=== PATIENT | female | born 1990 | race Caucasian/White ===

== ENCOUNTER 2016-08-20 09:53 | Emergency (ER) ==
[2016-08-20 10:56] LABS: MANUAL DIFF NEEDED? NO
[2016-08-20 10:58] LABS: URINE SOURCE CATH
[2016-08-20 11:02] LABS: BILIRUBIN URINE NEGATIVE (NEGATIVE); BLOOD URINE NEGATIVE (NEGATIVE); COLOR YELLOW; GLUCOSE URINE TRACE mg/dL (NEGATIVE); LEUKOCYTES URINE NEGATIVE (NEGATIVE); NITRITE URINE NEGATIVE (NEGATIVE); PH URINE 6.5; PROTEIN URINE 30 mg/dL (NEGATIVE); TURBIDITY URINE CLEAR (CLEAR); UROBILINOGEN URINE NORMAL (NORMAL)
[2016-08-20 11:03] LABS: BASO% 0.2 % (0.0-0.8); EOS# 0.77 X1000 (0.0-0.7); EOS% 5.6 % (0.0-10.0); HEMATOCRIT 29.3 % (37.0-47.0); IMM GRAN# 0.08 X1000 (0.0-0.04); IMM GRAN% 0.6 % (0.0-0.5); LYMPH# 2.32 X1000 (1.2-3.4); LYMPH% 16.8 % (20.5-51.1); MCH 23.2 PG (27-31); MCHC 30.7 g/dL (33-37); MCV 75.5 FL (81-99); MONO# 0.76 X1000 (0.11-0.59); MONO% 5.5 % (1.7-9.3); MPV 10.7 FL (7.4-10.4); NEUT% 71.3 % (42.2-75.2); PLT 242 X1000 (130-400); RBC 3.88 XMIL (4.2-5.4)
[2016-08-20 11:07] LABS: UR EPITHELIAL CELLS >10 /HPF (<10); URINE BACTERIA NEGATIVE /HPF; URINE MICRO REVIEW NEEDED? YES; URINE RBC <10 /HPF (<10); URINE WBC <10 /HPF (<10)
[2016-08-20 11:14] LABS: URINE CASTS NONE SEEN; URINE CRYSTALS NONE SEEN; URINE SMALL ROUND CELLS NONE SEEN
--- NOTE | 2016-08-20 11:16 | PROVIDER DOCUMENTATION ---
HPI-Abdominal Pain/GI Problem - General Source: patient - History of Present Illness-ABD Nature of Presenting Problems: Pt is a 26 yof who came to the ED with a cc of abdominal pain. Pt reports she is unable to urinate and has periumbilical pain/hernia. Pt has a yeast infection. Abdominal Pain Onset Location: reports: periumbilical Pain Radiation: reports: no radiation Quality of Pain: reports: sharp Onset/Duration: reports: unsure Timing: reports: still present Exposure to sick contacts?: No Modifying Factors: improves with: nothing Associated Symptoms: reports: vomiting Last BM: unsure Bruising or Bleeding Gums?: No Similar Symptoms Previously?: No Recently seen or treated by another doctor?: No <Marilee Gonzales - Last Filed: 08/20/16 13:40> <Adama Orantes I - Last Filed: 08/20/16 13:57> - General Chief Complaint: Abdominal Pain Stated Complaint: POSS HERNIA Time Seen by Provider: 08/20/16 10:33 Allergies/Adverse Reactions: Patient Allergies Allergy/AdvReac Type Severity Reaction Status Date / Time No Known Allergies Allergy Verified 08/20/16 10:20 Home Medications: Home Medication List Medication Instructions Recorded Confirmed Last Taken Type No Home Medications 08/20/16 08/20/16 Unknown History Review of Systems - Adult - REVIEW OF SYSTEMS - ADULT Constitutional: denies: chills, fever Eyes: reports: no symptoms reported Ears, Nose, Mouth & Throat: reports: no symptoms reported Cardiovascular: reports: no symptoms reported Respiratory: reports: no symptoms reported Gastrointestinal: reports: abdominal pain (periumbilical), nausea, vomiting. denies: diarrhea, frequent heartburn, rectal bleeding Genitourinary: reports: urinary retention. denies: dysuria, hematuria Musculoskeletal: reports: no symptoms reported Integumentary: reports: no symptoms reported Neurological: reports: no symptoms reported Psychiatric: reports: no symptoms reported Endocrine: reports: no symptoms reported Hematologic/Lymphatic: reports: no symptoms reported Allergic/Immunologic: reports: no symptoms reported All Other Systems: Reviewed and Negative <Marilee Gonzales - Last Filed: 08/20/16 13:40> Past History - Adult - PAST MEDICAL HISTORY-ADULT Review of Records: reports: Old Records Reviewed, Nursing Assessment Review Major Childhood Illnesses: reports: denies history Cardiovascular: reports: denies history Respiratory: reports: asthma Gastrointestinal: reports: denies history Obstetrical/Gynecological: reports: denies history Genitourinary: reports: denies history Musculoskeletal: reports: denies history Neurological: reports: denies history Endocrine/Immune: reports: denies history Other Conditions: reports: denies history - PRIOR SURGERIES/PROCEDURES Surgical/Procedure History: reports: none - FAMILY HISTORY Family History: reviewed, not pertinent <Marilee Gonzales - Last Filed: 08/20/16 13:40> Physical Exam-General - PHYSICAL EXAM-ADULT Initial Vital Signs Reviewed: Yes - CONSTITUTIONAL General Appearance: alert, mild distress - EYES Eyes: PERRL/EOMI, pink conjunctivae, fundi clear, no AV nicking - HEAD, EARS, NOSE, MOUTH & THROAT HENMT: normocephalic/atraumatic, moist mucous membranes, normal ENT inspection, TMs normal, pharynx normal - NECK Neck: non-tender - RESPIRATORY Respiratory: chest non-tender, lungs clear, normal breath sounds, no pleuratic chest pain, no respiratory distress, no accessory muscle use - CARDIOVASCULAR Cardiovascular: normal peripheral pulses, regular rate, rhythm, no edema, no gallop, no JVD, no murmur - GASTROINTESTINAL (ABDOMEN) Abdominal Exam: tenderness (periumbilical pain), hernia - SKIN Integumentary: normal color, normal turgor - NEUROLOGIC Neurologic: grossly normal - PSYCHIATRIC Psych/Mental Status: normal mood/affect, normal thought content, normal thought process, oriented x 3 <Marilee Gonazles - Last Filed: 08/20/16 13:40> Progress - PLAN OF CARE/RESULTS Progress/Plan/Lab Results: Vital Signs - 24 hr 08/20/16 09:55 Temperature 97.7 F Pulse Rate 114 H Respiratory 20 Rate Blood Pressure 122/94 O2 Sat by Pulse 100 Oximetry Orders Category Date Time Status ED: Urine Bedside ORDERED Care 08/20/16 10:24 Active US OBS COMPLETE > 14 WKS [US] Stat Exams 08/20/16 10:57 Ordered CBC WITH DIFF [HEME] Stat Lab 08/20/16 10:35 Completed CMP [COMPREHENSIVE METABOLIC PANEL] [CHEM] Stat Lab 08/20/16 10:35 Received TEST-SERUM [PREG] Stat Lab 08/20/16 10:35 Received QUANT TEST Stat Lab 08/20/16 10:35 Received URINALYSIS [URINALYSIS] Stat Lab 08/20/16 10:50 Results URINE MANUAL MICROSCOPIC [URINALYSIS] Stat Lab 08/20/16 10:50 Results Laboratory Tests 08/20/16 08/20/16 10:35 10:50 WBC 13.82 H RBC 3.88 L Hgb 9.0 L Hct 29.3 L MCV 75.5 L MCH 23.2 L MCHC 30.7 L RDW Std Deviation 16.5 H Plt Count 242 MPV 10.7 H Immature Gran % (Auto) 0.6 H Neut % (Auto) 71.3 Lymph % (Auto) 16.8 L [place] % (Auto) 5.5 Eos % (Auto) 5.6 Baso % (Auto) 0.2 Immature Gran # (Auto) 0.08 H Neut # (Auto) 9.86 H Lymph # (Auto) 2.32 [place] # (Auto) 0.76 H Eos # (Auto) 0.77 H Baso # (Auto) 0.03 Urine Source CATH Urine Color YELLOW Urine Turbidity CLEAR Urine pH 6.5 Ur Specific [place] 1.020 Urine Protein 30 A Ur Glucose (Stick) TRACE Ur Ketones (Stick) 10 A Urine Blood NEGATIVE Urine Nitrite NEGATIVE Urine Bilirubin NEGATIVE Urobilinogen Dipstick NORMAL Urine Leukocytes NEGATIVE Urine WBC (Auto) <10 Urine RBC (Auto) <10 U Epithel Cells (Auto) >10 A Urine Bacteria (Auto) NEGATIVE - ULTRASOUND (By Radiology) 1 US Study: Abdomen (herniated frat, viable fetus heart rate of 136) <Marilee Gonzales - Last Filed: 08/20/16 13:40> - PLAN OF CARE/RESULTS Progress/Plan/Lab Results: A0 who didn't know she was . She is 28 weeks IUP per U/S. She has a viable fetus at 136 HR. I spoke to Dr. Hoffmann, who recommended transfer to [facility] for Obstetrical evaluation. Marquis Orantes M.D., ACEP 1400 <Adama Orantes I - Last Filed: 08/20/16 13:57> Departure - Departure Time of Disposition Order: 13:40 Certified Medical Emergency: Emergent <Marilee Gonzales - Last Filed: 08/20/16 13:40> - Departure Time of Disposition Order: 13:56 Certified Medical Emergency: Emergent <Adama Orantes I - Last Filed: 08/20/16 13:57> - Departure DIAGNOSIS: Abdominal pain during intrauterine , Intrauterine , Periumbilical hernia Disposition: [facility] Condition: Stable Referrals: None,PCP [Primary Care Provider] - Attestation - Scribe Verification/Attestation Scribe:: Marilee Gonzales Acting as Scribe for:: Adama Orantes Scribe documention review:: This chart was documented by a scribe and accurately reflects the service the provider performed and the decisions made by the provider. <Marilee Gonzales - Last Filed: 08/20/16 13:40> Physician Attestation - Physician Attestation I, the provider, attest to the following statement:: Adama Orantes Physician documentation Attestation:: This documentation recorded by the scribe accurately reflects the service I personally performed and the decisions made by me. <Adama Orantes I - Last Filed: 08/20/16 13:57>
[2016-08-20 11:44] LABS: AGAP 16; ALBUMIN 3.4 g/dL (3.5-5.0); ALKALINE PHOSPHATASE 71 U/L (32-104); BUN 4 mg/dL (8-22); CALCIUM 8.5 mg/dL (8.8-10.2); CHLORIDE 101 mmol/L (98-107); COSMO 265; GOT 28 U/L (10-30); GPT 12 U/L (10-36); POTASSIUM 4.2 mmol/L (3.5-5.1); SODIUM 134 mmol/L (136-145); TCO2 17 mmol/L (25-35); TOTAL BILIRUBIN 0.21 mg/dL (0.20-1.00); TOTAL PROTEIN 7.3 g/dL (6.3-8.3)
[2016-08-20 14:32] VITALS: BP 128/64
--- NOTE | 2016-08-20 17:12 | Diag Imaging Result Document ---
PROCEDURE NAME: US OBS COMPLETE > 14 WKS - 08/20/2016 OB ULTRASOUND: FINDINGS: There are no previous studies of any kind. There is an apparent umbilical hernia. This contains what appears to be fat from the peritoneum. There is also a small amount of fluid present within the sac of the hernia. The fluid collection is less than 1.6 cm in various dimension. There is a viable intrauterine gestation. The placenta is anterior and there is no evidence of placenta previa. There are no apparent anatomic abnormalities. Amniotic fluid volume is qualitatively normal. The fetus based on multiple parameters is consistent with a gestational age of 28 week, 5 days +/- 13 days. The estimated weight is 1313 grams +/- 176 grams. The PHILIPP is estimated at 11/07/2016. IMPRESSION: Viable intrauterine gestation at 28 weeks, 5 weeks by ultrasound. Apparent umbilical hernia containing fat and fluid.
== END 2016-08-20 14:25 | disposition admitted as inpatient to this hospital (09) ==
LOC: ED 09:53
DX: O26.893 Other specified pregnancy related conditions, third trimester (principal); K42.9 Umbilical hernia without obstruction or gangrene; R10.33 Periumbilical pain; R11.0 Nausea; R33.9 Retention of urine, unspecified; R10.815 Periumbilic abdominal tenderness; O21.9 Vomiting of pregnancy, unspecified; Z3A.28 28 weeks gestation of pregnancy
CPT/HCPCS: 76805; 80053; 81001; 84702; 84703; 85025

== ENCOUNTER 2016-10-25 22:06 | Inpatient (IN) ==
[2016-10-25 22:36] LABS: URINE SOURCE VOIDED
[2016-10-25 22:52] LABS: BILIRUBIN URINE NEGATIVE (NEGATIVE); BLOOD URINE NEGATIVE (NEGATIVE); CLARITY SL. CLOUDY (CLEAR); COLOR YELLOW; GLUCOSE URINE NEGATIVE (NEGATIVE); LEUKOCYTES URINE 2+ (NEGATIVE); NITRITE URINE NEGATIVE (NEGATIVE); PH URINE 6.5; PROTEIN URINE TRACE mg/dL (NEGATIVE); UROBILINOGEN URINE 4+(12 mg/dL)
[2016-10-25] MEDS ORDERED: PEPCID IV PRN (23:13)
[2016-10-25] MEDS ORDERED: PEPCID PO PRN (23:13)
[2016-10-25] MEDS ORDERED: ZOFRAN IV PRN (23:13)
[2016-10-25] MEDS ORDERED: REGLAN PO ONE (23:13)
[2016-10-25] MEDS ORDERED: TYLENOL PO PRN (23:13)
[2016-10-25] MEDS ORDERED: PEPCID PO ONE (23:13)
[2016-10-25] MEDS ORDERED: PITOCIN 30 UNITS/LR 30 UNITS/500 ML IV.SOLN IV SCH (23:13)
[2016-10-25] MEDS ORDERED: KEFZOL 1 GM/D5W 1 GM/50 ML IVPB IV PRN (23:13)
[2016-10-25] MEDS ORDERED: SODIUM CHLORIDE 0.9% INJ SCH (23:15)
[2016-10-25] MEDS ORDERED: PHENERGAN IV PRN (23:16)
[2016-10-25] MEDS ORDERED: SODIUM CHLORIDE 0.9% INJ PRN (23:16)
[2016-10-26] MEDS: LR 1,000 ML IV SCH ×2 (00:25→05:05)
[2016-10-26] MEDS: STADOL IV PRN ×2 (01:14→04:48)
[2016-10-26 01:30] LABS: UR AMPHETAMINES QUAL NONE DETECTED (NONE DETECT); UR BARBITUATES QUAL NONE DETECTED (NONE DETECT); UR BENZODIAZEPIN QUAL NONE DETECTED (NONE DETECT); UR CANNABINOIDS QUAL NONE DETECTED (NONE DETECT); UR COCAINE QUAL NONE DETECTED (NONE DETECT); UR MDMA QUAL NONE DETECTED (NONE DETECT); UR METHADONE QUAL NONE DETECTED (NONE DETECT); UR METHAMPHETAMINE QUAL NONE DETECTED (NONE DETECT); UR OPIATES QUAL NONE DETECTED (NONE DETECT); UR OXYCODONE QUAL NONE DETECTED (NONE DETECT); UR PCP QUAL NONE DETECTED (NONE DETECT); UR TCA QUAL NONE DETECTED (NONE DETECT)
[2016-10-26 01:41] LABS: BASO% 0.2 % (0.0-0.8); EOS% 4.1 % (0.0-10.0); HEMATOCRIT 22.7 % (37.0-47.0); HEMOGLOBIN 6.6 g/dL (12.0-16.0); IMM GRAN# 0.06 X1000 (0.0-0.04); IMM GRAN% 0.5 % (0.0-0.5); LYMPH# 2.86 X1000 (1.2-3.4); LYMPH% 23.7 % (20.5-51.1); MANUAL DIFF NEEDED? YES; MCH 19.6 PG (27-31); MCHC 29.1 g/dL (33-37); MCV 67.4 FL (81-99); MONO# 0.75 X1000 (0.11-0.59); MONO% 6.2 % (1.7-9.3); MPV 10.4 FL (7.4-10.4); NEUT% 65.3 % (42.2-75.2); PLT 197 X1000 (130-400); RBC 3.37 XMIL (4.2-5.4)
[2016-10-26 02:57] LABS: BANDS 0 % (0-1); BASO 0 % (0-1); EOS 6 % (1-10); HYPOCHROM 1+; LYMPHS 22 % (21-51); MONO 6 % (1-9); POLYCHROM OCCASIONAL
[2016-10-26 02:58] LABS: TARGET CELLS OCCASIONAL
[2016-10-26] MEDS ORDERED: MARCAINE 0.25% PF/EPI 1:200,000 ONE (05:31)
[2016-10-26] MEDS ORDERED: FENTANYL-BUPIV-NS 2 MCG-0.1% 200 ML ONE (05:31)
[2016-10-26] MEDS ORDERED: FENTANYL-BUPIV-NS 2 MCG-0.1% 200 ML EPIDURAL SCH (06:00)
--- NOTE | 2016-10-26 07:40 | OPERATIVE NOTE ---
PROCEDURE DATE: 10/26/2016 DELIVERING PHYSICIAN: Dr. Zion Hoffmann. TYPE OF DELIVERY: Spontaneous controlled vaginal delivery. ANESTHESIA: Epidural. FINDINGS: At 7:07, a 6 pound 11 ounce female infant was delivered in occiput anterior presentation. There was a nuchal cord x2. Apgars were 8 at 1 minute and 10 at 5 minutes. SUMMARY: Cheli Flores is a 26-year-old 4, para 3, who is at term gestation. Her blood type is A positive. Rubella immune. Hepatitis B surface antigen, HIV, and group B strep is negative. The patient's care has been uncomplicated. She presented to Labor and Delivery in spontaneous labor. She had spontaneous rupture of membranes. After an epidural was placed, she became complete and began pushing. She rapidly crowned. At that point, a spontaneous controlled vaginal delivery occurred. The oropharynx was bulb suctioned. The nuchal cord x2 was reduced. The shoulders and body delivered without complications. Cord was clamped and cut. The infant was handed to the nurses for further care and evaluation. Cord blood was obtained. Placenta was spontaneously delivered. It was intact. There were no cervical or vaginal lacerations and blood loss estimated at 150 mL. The patient remained in the LDR recovering without difficulty. cc: MD Raymond Drummond MD
[2016-10-26] MEDS ORDERED: PERCOCET-5 PO PRN (08:18)
[2016-10-26] MEDS ORDERED: XYLOCAINE-MPF 1% INJ PRN (08:18)
[2016-10-26] MEDS ORDERED: MINERAL OIL PO PRN (08:18)
[2016-10-26] MEDS ORDERED: PERCOCET-10 PO PRN (08:18)
[2016-10-26] MEDS ORDERED: AMBIEN PO PRN (08:18)
[2016-10-26] MEDS ORDERED: BENADRYL IV PRN (08:18)
[2016-10-26] MEDS ORDERED: HYDROXYZINE IM PRN (08:18)
[2016-10-26] MEDS ORDERED: NORCO-10 PO PRN (08:18)
[2016-10-26] MEDS ORDERED: BENADRYL PO PRN (08:18)
[2016-10-26] MEDS ORDERED: CYTOTEC PO PRN (08:18)
[2016-10-26] MEDS ORDERED: PERI MEDS (DERMOPLAST/NUPERCAINAL/TUCKS) MISC PRN (08:18)
[2016-10-26] MEDS ORDERED: PITOCIN 20 UNITS/LR 20 UNITS/1,000 ML IV.SOLN IV SCH (08:18)
[2016-10-26] MEDS ORDERED: PITOCIN IM PRN (08:18)
[2016-10-26] MEDS ORDERED: HYDROXYZINE PO PRN (08:18)
[2016-10-26] MEDS ORDERED: BOOSTRIX VACCINE IM ONE (08:18)
[2016-10-26] MEDS ORDERED: M-M-R II VACCINE SUBQ ONE (08:18)
[2016-10-26] MEDS ORDERED: PITOCIN 30 UNITS/LR 30 UNITS/500 ML IV.SOLN IV ONE (08:18)
[2016-10-26] MEDS: NORCO-5 PO PRN (14:31)
[2016-10-26] MEDS: MOTRIN PO PRN ×2 (14:31→23:30)
[2016-10-26] MEDS: PERICOLACE PO SCH ×2 (19:56→21:32)
[2016-10-27 06:29] LABS: HEMATOCRIT 20.8 % (37.0-47.0); MCH 19.5 PG (27-31); MCHC 28.4 g/dL (33-37); MCV 68.6 FL (81-99); MPV 10.5 FL (7.4-10.4); RBC 3.03 XMIL (4.2-5.4)
[2016-10-27 06:35] LABS: HEMOGLOBIN 5.9 g/dL (12.0-16.0)
[2016-10-27] MEDS: PRECARE PO SCH (20:05)
[2016-10-27] MEDS: HEMOCYTE PLUS CAPSULE PO SCH (20:05)
[2016-10-27] MEDS: PERICOLACE PO SCH (20:06)
[2016-10-27 22:54] VITALS: BP 135/78
[2016-10-28 06:40] LABS: HEMOGLOBIN 6.3 g/dL (12.0-16.0); MCH 18.6 PG (27-31); MCHC 27.4 g/dL (33-37); MPV 10.4 FL (7.4-10.4); RBC 3.38 XMIL (4.2-5.4)
[2016-10-28] MEDS: MOTRIN PO PRN (07:27)
[2016-10-28] MEDS: NORCO-5 PO PRN (07:27)
[2016-10-28] MEDS: PRECARE PO SCH (08:35)
[2016-10-28] MEDS: HEMOCYTE PLUS CAPSULE PO SCH (08:35)
== END 2016-10-28 10:38 | disposition home or self-care (01) ==
LOC: P.NBC 22:06 → P.LD 22:09 → P.WC 10-26 10:26
PROVIDERS: ADMIT Obstetrics & Gynecology; ATTEND Obstetrics & Gynecology